=== PATIENT | male | born 2000 | race Caucasian/White ===

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

== ENCOUNTER 2022-06-29 09:56 | Emergency (ER) | payer OTHER, SELFPAY ==
[2022-06-29 09:56] VITALS: BP 135/96; PULSE 66; RESP 14; TEMP 36.3; O2SAT 99; BMI 20.2
--- NOTE | 2022-06-29 10:25 | EDS_ITS ---
HPI History of Present Illness Chief Complaint: Laceration Narrative Narrative: Presents with a laceration to his right upper lip that occurred today. 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 Patient states he grabbed a metal chain and the metal chain came loose and hit him in his upper lip. Patient denies any loss of consciousness. Patient is unsure of his last tetanus. Patient denies any paresthesias or weakness. Patient states he has no difficulty ambulating. Patient describes his pain as dull and mild. Patient denies any other injuries. Tetanus Immunization: Unknown [facility] Medical History Bicuspid aortic valve history of finger injury Knee pain Pharyngitis, acute Spontaneous pneumothorax Home Medications NK 11/12/20 [History Last Taken Unknown] Allergy/AdvReac Type Severity Reaction Status Date / Time No Known Allergies Allergy Verified 03/01/22 09:25 Surgical History Right ring finger surgery Social History household members: family housing: house Smoking Status: Current every day smoker tobacco type: e-cigarettes alcohol intake: never substance use type: does not use do you feel safe at home: Yes ROS ROS ED Constitutional Constitutional ED: Denies chills or fever(s) Eyes Eyes: Denies blurry vision or change in vision ENT ENT ED: Denies rhinorrhea or sore throat Cardiovascular Cardiovascular: Denies chest pain or palpitations Respiratory/Chest Respiratory/Chest: Denies cough or dyspnea Gastrointestinal Gastrointestinal: Denies nausea or vomiting Genitourinary Genitourinary ED: Denies dysuria or hematuria Musculoskeletal Musculoskeletal: Denies back pain or neck pain Integumentary Denies abscess or rash Neurologic Neurologic: Denies headache(s) or weakness Allergic/Immunologic Allergic/Immunologic ED: Denies mouth swelling or urticaria EXAM Physical Exam Const Vital Signs: 06/29/22 09:56 Temperature 97.3 F L Temperature Source Temporal Pulse Rate 66 Respiratory Rate 14 Blood Pressure 135/96 H Blood Pressure Mean 109 Pulse Ox 99 Oxygen Delivery Method Room Air Positive well nourished and well developed General Appearance ED: well developed and NAD HEENT HEENT Narrative: Oral mucosa is pink and moist. Oropharynx is clear. Airway is patent. Eyes PERRL and EOMs intact bilaterally Neck full ROM Neuro oriented x3, CN's II-XII intact bilaterally, moves all extremities, no focal motor deficits and no sensory deficits noted [place] Coma Scale: document GCS findings Spontaneous Obeys Commands Oriented 15 Sensorium / Orientation: alert Motor Exam: strength 5/5 throughout Psych mental status grossly normal Skin Skin Narrative: There is a 1 cm full-thickness linear laceration over the right side of the upper lip and the external surface. This does cross the vermilion border. There is moderate gapping of the wound margins. There is mild bleeding noted. There are no foreign bodies noted. Teeth are intact. There are no dental fractures noted. PROC Procedures Lacerations Right upper lip: Length: 1 cm Depth: Sub Q Shape: Linear Prep: Sterile Conditions and Chlorhexadine Laceration repair: Irrigated, Lidocaine, Nerve block (Infraorbital) and Wound explored Number of Sutures/Sanderson: 3 Suture Information: Ethilon, Simple and 6-0 MDM MDM MDM Narrative Medical decision making narrative: Patient was advised of the need for suture repair of his laceration. Patient had no further questions. Patient agrees with proceeding with laceration repair. The right upper lip was cleaned and anesthetized with 1% lidocaine via infraorbital nerve block. The wound was closed with 3 simple interrupted #6-0 nylon sutures under sterile technique. Patient tolerated the procedure well. Patient was instructed to keep the wound clean and dry. Patient was instructed to follow-up with his primary care physician in 5 days for wound recheck and suture removal. Patient understood and was agreeable with the plan. All questions were answered. Discharge Plan Triage Chief Complaint: Laceration ED Provider: Aram Hua Dx/Rx/DC Orders Clinical Impression: Laceration of vermilion border of upper lip without complication Instructions: ED Laceration: All Closures, ED Laceration Minimize Scars Prescriptions: No Action NK Primary Care Provider: Care Physician,No Primary Referrals: Madi Gan NP, [employer] [Non-Staff] - 5 Days for suture removal Disposition Disposition: Home, Self Care
[2022-06-29] MEDS: Lidocaine 1% (20 ml mdv) 20 ML Vial INFILT (10:52)
[2022-06-29] MEDS: Diphth,Pertuss(Acell),Tet Vac 0.5 ML Vial IM (10:52)
[2022-06-29 13:40] VITALS: BP 119/72; PULSE 89; RESP 18; TEMP 36.9; O2SAT 99
--- NOTE | 2022-06-29 13:46 | CM.ED ---
Social Work SW introduced self and role to patient. Discussion had regarding PCP and provider resources given. Binta Orozco [employer] TE[employer]ER, DIABETES PHYSICIAN
== END 2022-06-29 13:41 | disposition home or self-care (01) ==
PROVIDERS: Emergency Provider Emergency Medicine; Visit Provider Emergency Medicine
DX: S01.511A Laceration without foreign body of lip, initial encounter (principal); W22.8XXA Striking against or struck by other objects, initial encounter; Y99.0 Civilian activity done for income or pay; Y92.69 Other specified industrial and construction area as the place of occurrence of the external cause; F17.290 Nicotine dependence, other tobacco product, uncomplicated; Z23 Encounter for immunization
CPT/HCPCS: 12011; 90471; 90715; 99283

== ENCOUNTER → 2024-06-10 | Outpatient (CLI) | payer OTHER, SELFPAY ==
[2024-06-10 11:32] LABS: Cholesterol 163 mg/dL (<=190); High Density Lipoprotein 60 mg/dL; Low Density Lipoprotein Calc. 95 mg/dL; Triglycerides 38 mg/dL; Very Low Density Lipoprotein 8 mg/dL (5-40)
== END | disposition home or self-care (01) ==
PROVIDERS: Referring Provider Internal Medicine Cardiovascular Disease; Visit Provider Internal Medicine Cardiovascular Disease
DX: R00.2 Palpitations (principal)
CPT/HCPCS: 36415; 80061

== ENCOUNTER → 2024-07-29 | Outpatient (CLI) | payer OTHER, SELFPAY ==
--- NOTE | 2024-07-29 07:25 | CT_ITS ---
PROCEDURE: CTA CHEST WITH CONTRAST 07/29/2024 REASON FOR EXAM: BICUSPID AORTIC VALVE, AORTA DILATION TECHNIQUE: Contiguous axial scans of 2.5 mm slice thicknesses. Sagittal and coronal reconstruction images were obtained. One or more dose reduction techniques were used (e.g., automated exposure control, adjustment of mA and/or kv according to patient size, use of iterative reconstruction technique). Three-dimensional MIP imaging was also performed. CONTRAST: ISOVUE 370 VOLUME: 100 mL Gauge IV RADIATION DOSE SUMMARY: DLP: 411.63 mGycm COMPARISON: Single-view chest dated 11/12/2020. FINDINGS: Lungs and Airways: The lungs are normally expanded and clear. Small 0.5 cm noncalcified micronodule, right upper lobe, axial image 85. Pleura: No pleural effusion. No pneumothorax. Heart: Normal heart size. No pericardial effusion. Pericardium: No thickening. Coronary arteries: Unremarkable. Thoracic Aorta: No thoracic aortic aneurysm or dissection. Pulmonary Vessels: No large central filling defects. Contrast timing was optimized for evaluation of the aorta. Mediastinum: No mediastinal hilar or axillary lymphadenopathy. Thyroid:No nodules.. Upper Abdomen: Visualized portions of the upper abdominal viscera are unremarkable. Bones: Bone windows are unremarkable. CT/CTA Chest W/WO Contrast IMPRESSION: !. Tiny noncalcified micronodule, right upper lobe. This may represent noncal cified granuloma. 2. No aneurysms. 3. No other significant findings. Reading Location: [place] [id number]
--- NOTE | 2024-07-29 07:25 | ECHOD_ITS ---
Reason For Study Reason For Study: BICUSPID AV Procedure This was a 2D Doppler, Color Flow transthoracic echocardiogram. Exam performed in department. Left Ventricle Normal size and thickness. The LV systolic function is normal. EF is 65 %. No evidence for diastolic dysfunction. Right Ventricle Normal right ventricle. Atria The left and right atria are normal. Mitral Valve Trivial mitral valve insufficiency. Tricuspid Valve Trivial tricuspid valve insufficiency. Unable to estimate RV systolic pressure due to insufficient tricuspid regurgitant envelope. Aortic Valve Bicuspid aortic valve. No stenosis. Trivial aortic valve regurgitation. Pulmonic Valve The pulmonic valve is not well visualized. Trivial pulmonic valve insufficiency. Great Vessels Normal sized aortic root. Pericardium/Pleural No pericardial effusion. MMode/2D Measurements & Calculations LVIDd: 5.0 cm IVSd: 0.98 cm LVOT diam: 2.3 cm LVIDs: 3.8 cm LVPWd: 0.98 cm LVOT area: 4.2 cm2 RVDd: 3.7 cm FS: 24.4 % Ao root diam: 3.3 cm LAV(MOD-bp): 41.2 ml LVAd ap4: 31.6 cm2 LAV(MOD-bp) Indexed: 22.1 ml/m2 LVLd ap4: 9.0 cm LAV(MOD-sp2): 41.9 ml EDV(MOD-sp4): 92.7 ml LAV(MOD-sp4): 34.0 ml EDV(sp4-el): 94.4 ml LVAs ap4: 16.5 cm2 LVLs ap4: 7.1 cm ESV(MOD-sp4): 33.3 ml ESV(sp4-el): 32.5 ml EF(MOD-sp4): 64.0 % EF(sp4-el): 65.6 % SV(MOD-sp4): 59.4 ml SV(sp4-el): 61.9 ml LA A4 area: 15.2 cm2 SI(MOD-sp4): 31.8 ml/m2 LA dimension(2D): 3.3 cm RA A4 area: 12.7 cm2 Time Measurements MV dec time: 0.18 sec Doppler Measurements & Calculations MV E max donte: 71.6 cm/sec Lat Peak E' Donte: 19.6 cm/sec MV V2 max: 80.4 cm/sec MV A max donte: 37.7 cm/sec E/E' lat: 3.7 MV max P.6 mmHg MV E/A: 1.9 MV V2 mean: 51.0 cm/sec MV mean P.2 mmHg MV V2 VTI: 19.4 cm MVA(VTI): 5.9 cm2 MV dec slope: 401.5 cm/sec2 Ao V2 max: 126.7 cm/sec LV V1 max: 113.2 cm/sec Ao max P.4 mmHg LV V1 max P.1 mmHg Ao V2 mean: 84.1 cm/sec LV V1 mean P.0 mmHg Ao mean P.3 mmHg LV V1 mean: 83.3 cm/sec Ao V2 VTI: 26.5 cm LV V1 VTI: 27.2 cm AV (velocity ratio): 1.0 ROBBI(I,D): 4.3 cm2 ROBBI(V,D): 3.7 cm2 MR max donte: 16.0 cm/sec SV(LVOT): 114.2 ml PA V2 max: 98.9 cm/sec MR max P.10 mmHg PA V2 mean: 72.1 cm/sec ECHO/Echo Complete Interpretation Summary The LV systolic function is normal. EF is 65 %. Bicuspid aortic valve. No stenosis. Trivial aortic valve regurgitation. Ordering Physician: Benson Mcnair Referring Physician: Benson Mcnair Performed By: Jossie Mackey RCS
== END | disposition home or self-care (01) ==
PROVIDERS: Referring Provider Internal Medicine Cardiovascular Disease; Visit Provider Internal Medicine Cardiovascular Disease
DX: I77.810 Thoracic aortic ectasia (principal); Q23.1 Congenital insufficiency of aortic valve
CPT/HCPCS: 71275; 93306; Q9967